=== PATIENT | male | born 1975 | race Caucasian/White ===

== ENCOUNTER 2018-05-17 18:46 | Emergency (ER) | payer SELFPAY ==
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
[2018-05-17] MEDS ORDERED: NA CHLORIDE 0.9% 1,000 ML ONE (19:33)
[2018-05-17] MEDS ORDERED: CEFAZOLIN 1GM (PREMIX IV) 1 GM/50 ML BAG ONE (19:33)
[2018-05-17] MEDS ORDERED: FENTANYL CITR 100 MCG/2 ML ONE (19:33)
[2018-05-17] MEDS ORDERED: TETANUS & DIPHTHERIA TOX,ADULT 0.5 ML VIAL ONE (19:33)
[2018-05-17 19:47] LABS: Absolute Monocytes 1.5 K/uL (0.1-1.3); Absolute Neutrophil 12.6 K/uL (1.8-8.0); Basophils % 0.8 % (0-1.3); Eosinophils % 1.2 % (0-4.4); Hematocrit 43.9 % (39.6-49.0); Lymphocytes % 21.9 % (15.3-44.8); MCH 31.6 pg (27.0-35.0); MCV 91.2 fL (80-100); MPV 8.9 fL (7.6-11.3); RBC Red Blood Cell Count 4.82 M/uL (4.33-5.43)
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
[2018-05-17 20:06] LABS: Platelet Estimate ADEQ; Urine White Blood Cell Casts OK
[2018-05-17 20:07] LABS: Platelets, Giant NOTED
[2018-05-17 20:08] LABS: Blood Morphology Comment NOT SEEN (NOT SEEN)
[2018-05-17 20:15] LABS: Potassium 3.7 mmol/L (3.5-5.1)
--- NOTE | 2018-05-17 20:58 | EDPHYS ---
Physician Documentation [facility] Name: Kj Varghese Age: 43 yrs Sex: Male : 1975 Arrival Date: 05/17/2018 Time: 18:50 Bed 7 Private MD: None, None ED Physician Deejay Freeman HPI: 05/17 20:08 This 43 yrs old Male presents to ER via Ambulatory with complaints of Fall snw Injury. 20:08 Details of fall: The patient fell from a height, off a roof, but with the patient's snw fall somewhat interrupted. Associated injuries: The patient sustained injury to the chest, injury to the abdomen, right wrist/forearm, abrasion, contusion, painful injury, swelling. Severity of symptoms: At their worst the symptoms were moderate. The patient has not experienced similar symptoms in the past. It is unknown whether or not the patient has recently seen a physician. hanging [place] lights and slid off the roof, + interrupted by shingles/roof, abrasion noted. Historical: - Allergies: 19:07 No Known Allergies; fc - Home Meds: 19:07 Adderall XR 25 mg Oral cp24 1 cap once daily [Active]; fc 19:08 aspirin 81 mg Oral TbEC 1 tab once daily [Active]; fc - PMHx: 19:07 ADD/ADHD; fc 19:08 dvt to left leg; fc - PSHx: 19:07 Hernia repair; fc - Immunization history: Last tetanus immunization: - up to date. - Social history:: Smoking status: Patient uses tobacco products, smokes one pack cigarettes per day. Patient uses alcohol, occasionally. - Ebola Screening: : Patient negative for fever greater than or equal to 101.5 degrees Fahrenheit, and additional compatible Ebola Virus Disease symptoms Patient denies exposure to infectious person Patient denies travel to an Ebola-affected area in the 21 days before illness onset. ROS: 20:06 Constitutional: Negative for fever, chills, and weight loss, Eyes: Negative for injury, snw pain, redness, and discharge, ENT: Negative for injury, pain, and discharge, Neck: Negative for injury, pain, and swelling, Cardiovascular: Negative for chest pain, palpitations, and edema, Respiratory: Negative for shortness of breath, cough, wheezing, postitive for right mild pleuritic chest pain, Abdomen/GI: Negative for abdominal pain, nausea, vomiting, diarrhea, and constipation. 20:06 : Negative for injury, bleeding, discharge, and swelling. 20:06 Back: Positive for injury or acute deformity, pain with movement, of the right scapular area and right subscapular area. 20:06 MS/extremity: Positive for injury or acute deformity, contusion, decreased range of motion, pain, of the right wrist/forearm/elbow. Exam: 20:05 Head/Face: Normocephalic, atraumatic. Eyes: Pupils equal round and reactive to light, snw extra-ocular motions intact. Lids and lashes normal. Conjunctiva and sclera are non-icteric and not injected. Cornea within normal limits. Periorbital areas with no swelling, redness, or edema. ENT: Nares patent. No nasal discharge, no septal abnormalities noted. Tympanic membranes are normal and external auditory canals are clear. Oropharynx with no redness, swelling, or masses, exudates, or evidence of obstruction, uvula midline. Mucous membranes moist. Neck: Trachea midline, no thyromegaly or masses palpated, and no cervical lymphadenopathy. Supple, full range of motion without nuchal rigidity, or vertebral point tenderness. No Meningismus. Chest/axilla: Normal chest wall appearance and motion. Nontender with no deformity. No lesions are appreciated. Cardiovascular: Regular rate and rhythm with a normal S1 and S2. No gallops, murmurs, or rubs. Normal PMI, no JVD. No pulse deficits. Respiratory: Lungs have equal breath sounds bilaterally, clear to auscultation and percussion. No rales, rhonchi or wheezes noted. No increased work of breathing, no retractions or nasal flaring. Abdomen/GI: Soft, non-tender, with normal bowel sounds. No distension or tympany. No guarding or rebound. No evidence of tenderness throughout. Back: No spinal tenderness. No costovertebral tenderness. Full range of motion. Neuro: Awake and alert, GCS 15, oriented to person, place, time, and situation. Cranial nerves II-XII grossly intact. Motor strength 5/5 in all extremities. Sensory grossly intact. Cerebellar exam normal. Normal gait. Psych: Awake, alert, with orientation to person, place and time. Behavior, mood, and affect are within normal limits. 20:05 Constitutional: The patient appears alert, awake, uncomfortable, diaphoretic 20:05 Musculoskeletal/extremity: Extremities: grossly normal except: noted in the dorsal aspect of right wrist and palmar aspect of right wrist: contusion, swelling, tenderness. 20:05 Skin: Appearance: normal except for affected area, diaphoresis is noted, injury, abrasion(s), large abrasion noted, of the anterior aspect of left lateral abdomen, right elbow. Vital Signs: 19:02 BP 153 / 93; Pulse 84; Resp 18; Temp 98.6(O); Pulse Ox 100% on R/A; Weight 98.88 kg fc (R); Height 6 ft. 3 in. (190.50 cm) (R); Pain 8/10; 20:00 BP 145 / 96; Pulse 94; Resp 18; Pulse Ox 100% on R/A; tl2 21:11 BP 158 / 92; Pulse 97; Resp 18; Pulse Ox 100% on R/A; Pain 4/10; tl2 19:02 Body Mass Index 27.25 (98.88 kg, 190.50 cm) Ben Coma Score: 19:02 Eye Response: spontaneous(4). Verbal Response: oriented(5). Motor Response: obeys fc commands(6). Total: 15. 20:00 Eye Response: spontaneous(4). Verbal Response: oriented(5). Motor Response: obeys tl2 commands(6). Total: 15. 21:11 Eye Response: spontaneous(4). Verbal Response: oriented(5). Motor Response: obeys tl2 commands(6). Total: 15. Trauma Score (Adult): 19:02 Eye Response: spontaneous(1); Verbal Response: oriented(1); Motor Response: obeys fc commands(2); Systolic BP: > 89 mm Hg(4); Respiratory Rate: 10 to 29 per min(4); [place] Score: 15; Trauma Score: 12 20:00 Eye Response: spontaneous(1); Verbal Response: oriented(1); Motor Response: obeys tl2 commands(2); Systolic BP: > 89 mm Hg(4); Respiratory Rate: 10 to 29 per min(4); [place] Score: 15; Trauma Score: 12 21:11 Eye Response: spontaneous(1); Verbal Response: oriented(1); Motor Response: obeys tl2 commands(2); Systolic BP: > 89 mm Hg(4); Respiratory Rate: 10 to 29 per min(4); [place] Score: 15; Trauma Score: 12 MDM: 19:33 Patient medically screened. snw 20:59 Data reviewed: vital signs, nurses notes. Data interpreted: Pulse oximetry: on room air snw is 100 %. Interpretation: normal. Counseling: I had a detailed discussion with the patient and/or guardian regarding: the historical points, exam findings, and any diagnostic results supporting the discharge/admit diagnosis, the presence of at least one elevated blood pressure reading (>120/80) during this emergency department visit, lab results, radiology results, the need for outpatient follow up, to return to the emergency department if symptoms worsen or persist or if there are any questions or concerns that arise at home. Special discussion: I have referred the patient to see his PCP for further evaluation of high blood pressure. Based on the patient's history, exam and DX evaluation, there is no indication for emergent intervention or inpatient TX. It is understood by the patient/guardian that if the SXs persist or worsen they need to return immediately for re-evaluation. Based on the history and exam findings, there is no indication for further emergent testing or inpatient evaluation. I discussed with the patient/guardian the need to see the primary care provider for further evaluation of the symptoms. 05/17 19:18 Order name: Basic Metabolic Panel; Complete Time: 20:16 snw 05/17 19:18 Order name: CBC with Diff; Complete Time: 20:10 snw 05/17 19:18 Order name: CT Traumagram (Head C Spine CAP W Con); Complete Time: 20:03 snw 05/17 19:18 Order name: Type And Screen; Complete Time: 22:38 snw 05/17 19:50 Order name: CBC Smear Scan; Complete Time: 20:10 EDMS 05/17 20:54 Order name: ABO/RH no charge; Complete Time: 20:55 EDMS 05/17 19:18 Order name: Labs collected and sent; Complete Time: 19:28 snw 05/17 19:18 Order name: Forearm Right XRAY; Complete Time: 21:01 snw 05/17 19:18 Order name: Wrist Right 3 View XRAY; Complete Time: 22:38 snw 05/17 19:18 Order name: Wound Care; Complete Time: 20:17 snw 05/17 20:38 Order name: Wrist Splint: right; Complete Time: 20:58 snw Administered Medications: 19:35 Drug: fentaNYL (PF) 50 mcg Route: IVP; Site: left upper arm; tl2 20:00 Follow up: Response: No adverse reaction; Pain is decreased tl2 20:05 Drug: Ancef 1 grams Route: IVPB; Site: left antecubital; rr5 21:15 Follow up: IV Status: Completed infusion tl2 20:06 Drug: NS 0.9% 1000 ml Route: IV; Rate: 1 bolus; Site: left upper arm; tl2 21:14 Follow up: IV Status: Completed infusion; IV Intake: 1000ml tl2 20:07 Drug: Tetanus-Diphtheria Toxoid Adult 0.5 ml {Overhead Worker: [employer]. Exp: rr5 02/24/2020. Lot #: [id number]. } Route: IM; Site: left deltoid; 21:15 Follow up: Response: No adverse reaction tl2 21:01 Drug: fentaNYL (PF) 50 mcg Route: IVP; Site: left upper arm; tl2 21:16 Follow up: Response: No adverse reaction; Medication administered at discharge. tl2 Disposition: 05/17/18 20:57 Discharged to Home. Impression: Fall from, out of or through roof, Abrasion of right front wall of thorax, Pain in right wrist, Contusion of right elbow. - Condition is Stable. - Discharge Instructions: Joint Pain, Hypertension, Musculoskeletal Pain, Wrist Pain, Wrist Splint, VIS, Tetanus, Diphtheria (Td) - CDC, Cryotherapy, [id number], Heat Therapy. - Prescriptions for Keflex 500 mg Oral Capsule - take 1 capsule by ORAL route every 8 hours for 10 days; 30 capsule. Diclofenac Sodium 75 mg Oral Tablet Sustained Release - take 1 tablet by ORAL route 2 times per day; 30 tablet. - Medication Reconciliation Form, Thank You Letter, Antibiotic Education, Prescription Opioid Use form. - Follow up: Private Physician; When: 2 - 3 days; Reason: Recheck today's complaints, Continuance of care, Re-evaluation by your physician. Follow up: Emergency Department; When: As needed; Reason: Worsening of condition. Signatures: Dispatcher [employer] EDMS Donna Marquez, PALLIATIVE CARE SPECIALIST-C PALLIATIVE CARE SPECIALIST-Csnw Janice Mckinnon, RN RN Mel Alfonso RN RN [facility] Rubin Coates RN RN rr5 Corrections: (The following items were deleted from the chart) 21:16 20:57 05/17/2018 20:57 Discharged to Home. Impression: Fall from, out of or through tl2 roof; Abrasion of right front wall of thorax; Pain in right wrist; Contusion of right elbow. Condition is Stable. Forms are Medication Reconciliation Form, Thank You Letter, Antibiotic Education, Prescription Opioid Use. Follow up: Private Physician; When: 2 - 3 days; Reason: Recheck today's complaints, Continuance of care, Re-evaluation by your physician. Follow up: Emergency Department; When: As needed; Reason: Worsening of condition. snw
--- NOTE | 2018-05-17 20:58 | ER ---
Nurse's Notes [facility] Name: Kj Varghese Age: 43 yrs Sex: Male : 1975 Arrival Date: 05/17/2018 Time: 18:50 Bed 7 Private MD: None, None Diagnosis: Fall from, out of or through roof;Abrasion of right front wall of thorax;Pain in right wrist;Contusion of right elbow Presentation: 05/17 19:02 Presenting complaint: Patient states: that he was on the roof of the house putting up [place] lights and fell. Landed on right side. Denies hitting head or any LOC. Has abrasions to right arm, right hip and right abd. Increased pain to right arm and hip only. Care prior to arrival: None. Mechanism of Injury: Fall from 1st story. Trauma event details: Injury occurred in the [facility], Injury occurred: at home. Injury occurred: May 17, 2018 Injury occurred at: 13:00. 19:02 Acuity: CHLOE 2 19:02 Method Of Arrival: Ambulatory 19:40 Transition of care: patient was not received from another setting of care. Onset of tl2 symptoms was May 17, 2018 at 18:30. Risk Assessment: Do you want to hurt yourself or someone else? Patient reports no desire to harm self or others. Initial Sepsis Screen: Does the patient meet any 2 criteria? No. Patient's initial sepsis screen is negative. Does the patient have a suspected source of infection? No. Patient's initial sepsis screen is negative. Trauma Activation: Alert Physician: ED Physician; Name: Jamil/Lydia; Notified At: 19:12; Arrived At: 19:12 Physician: General Surgeon; Name: ; Notified At: 19:12; Arrived At: Physician: Radiology; Name: Belkis Vargas Araceli; Notified At: 19:12; Arrived At: 19:12 Physician: Respiratory; Name: ; Notified At: 19:12; Arrived At: Physician: Lab; Name: ; Notified At: 19:12; Arrived At: Historical: - Allergies: 19:07 No Known Allergies; fc - Home Meds: 19:07 Adderall XR 25 mg Oral cp24 1 cap once daily [Active]; fc 19:08 aspirin 81 mg Oral TbEC 1 tab once daily [Active]; fc - PMHx: 19:07 ADD/ADHD; 19:08 dvt to left leg; fc - PSHx: 19:07 Hernia repair; fc - Immunization history: Last tetanus immunization: - up to date. - Social history:: Smoking status: Patient uses tobacco products, smokes one pack cigarettes per day. Patient uses alcohol, occasionally. - Ebola Screening: : Patient negative for fever greater than or equal to 101.5 degrees Fahrenheit, and additional compatible Ebola Virus Disease symptoms Patient denies exposure to infectious person Patient denies travel to an Ebola-affected area in the 21 days before illness onset. Screenin:02 Abuse screen: Denies threats or abuse. Tuberculosis screening: No symptoms or risk fc factors identified. 19:08 Nutritional screening: No deficits noted. fc 19:36 Fall Risk IV access (20 points). tl2 Primary Survey: 19:38 A: Airway: patent. Breathing/Chest: Respiratory pattern: regular, Respiratory effort: tl2 spontaneous, unlabored, Breath sounds: clear, Chest inspection: symmetrical rise and fall of the chest. Circulation: Pulses: palpable . Skin color: pink, Skin temperature: warm, dry. Disability Alert. 20:19 Reassessment Airway Airway Patent Breathing/Chest Respiratory pattern Regular tl2 Respiratory effort Spontaneous Unlabored Breath sounds Clear Chest inspection Symmetrical Circulation Pulses Palpable Disability Alert. Secondary Survey: 19:38 HEENT: No deficits noted. Gastrointestinal: No deficits noted. : No deficits noted. tl2 Musculoskeletal: Circulation, motion, and sensation intact. Range of motion: intact in all extremities, Swelling present in right wrist. Injury Description: Abrasion sustained to right flank, right arm. Assessment: 19:36 General: Appears in no apparent distress. uncomfortable, Behavior is calm, cooperative, tl2 appropriate for age. Pain: Complains of pain in back. Neuro: Level of Consciousness is awake, alert, obeys commands, Oriented to person, place, time, situation. Cardiovascular: Denies chest pain. Respiratory: Airway is patent Respiratory effort is even, unlabored, Respiratory pattern is regular, symmetrical. GI: No signs and/or symptoms were reported involving the gastrointestinal system. Derm: Skin is pink, warm \T\ dry. Injury Description: Abrasion sustained to right flank, right elbow is scabbed, was sustained 1-2 hours ago. 21:11 Reassessment: Patient appears in no apparent distress at this time. Patient and/or tl2 family updated on plan of care and expected duration. Pain level reassessed. Patient is alert, oriented x 3, equal unlabored respirations, skin warm/dry/pink. Pt verbalized understanding of discharge instructions, need for follow up and prescription usage and wound care Patient states feeling better. Vital Signs: 19:02 BP 153 / 93; Pulse 84; Resp 18; Temp 98.6(O); Pulse Ox 100% on R/A; Weight 98.88 kg fc (R); Height 6 ft. 3 in. (190.50 cm) (R); Pain 8/10; 20:00 BP 145 / 96; Pulse 94; Resp 18; Pulse Ox 100% on R/A; tl2 21:11 BP 158 / 92; Pulse 97; Resp 18; Pulse Ox 100% on R/A; Pain 4/10; tl2 19:02 Body Mass Index 27.25 (98.88 kg, 190.50 cm) fc [place] Coma Score: 19:02 Eye Response: spontaneous(4). Verbal Response: oriented(5). Motor Response: obeys fc commands(6). Total: 15. 20:00 Eye Response: spontaneous(4). Verbal Response: oriented(5). Motor Response: obeys tl2 commands(6). Total: 15. 21:11 Eye Response: spontaneous(4). Verbal Response: oriented(5). Motor Response: obeys tl2 commands(6). Total: 15. Trauma Score (Adult): 19:02 Eye Response: spontaneous(1); Verbal Response: oriented(1); Motor Response: obeys fc commands(2); Systolic BP: > 89 mm Hg(4); Respiratory Rate: 10 to 29 per min(4); [place] Score: 15; Trauma Score: 12 20:00 Eye Response: spontaneous(1); Verbal Response: oriented(1); Motor Response: obeys tl2 commands(2); Systolic BP: > 89 mm Hg(4); Respiratory Rate: 10 to 29 per min(4); [place] Score: 15; Trauma Score: 12 21:11 Eye Response: spontaneous(1); Verbal Response: oriented(1); Motor Response: obeys tl2 commands(2); Systolic BP: > 89 mm Hg(4); Respiratory Rate: 10 to 29 per min(4); Ben Score: 15; Trauma Score: 12 ED Course: 18:50 Patient arrived in ED. mr 18:51 None, None is Private Physician. mr 19:02 Patient has correct armband on for positive identification. Placed in gown. Bed in low fc position. Call light in reach. 19:02 Patient maintains SpO2 saturation greater than 95% on room air. fc 19:05 Triage completed. fc 19:08 Arm band placed on Patient placed in an exam room, on a stretcher. fc 19:13 Donna Marquez FNP-C is [facility]. snw 19:13 Deejay Freeman MD is Attending Physician. snw 19:19 Mel Alfonso RN is Primary Nurse. tl2 19:23 Inserted saline lock: 20 gauge in left upper arm, using aseptic technique. Blood mw2 collected. 19:35 CT completed. Patient tolerated procedure well. Patient moved to CT via stretcher. Patient moved to radiology via stretcher. 19:40 Thermoregulation: warm blanket given to patient. tl2 19:41 CT Traumagram (Head C Spine CAP W Con) In Process Unspecified. EDMS 19:52 Forearm Right XRAY In Process Unspecified. EDMS 19:52 Wrist Right 3 View XRAY In Process Unspecified. EDMS 20:21 Wound care: to abrasion, located on right flank, right elbow, right forearm was cleaned tl2 with Hibiclens, dressed with Neosporin. 21:13 No provider procedures requiring assistance completed. IV discontinued, intact, tl2 bleeding controlled, No redness/swelling at site. Pressure dressing applied. Administered Medications: 19:35 Drug: fentaNYL (PF) 50 mcg Route: IVP; Site: left upper arm; tl2 20:00 Follow up: Response: No adverse reaction; Pain is decreased tl2 20:05 Drug: Ancef 1 grams Route: IVPB; Site: left antecubital; rr5 21:15 Follow up: IV Status: Completed infusion tl2 20:06 Drug: NS 0.9% 1000 ml Route: IV; Rate: 1 bolus; Site: left upper arm; tl2 21:14 Follow up: IV Status: Completed infusion; IV Intake: 1000ml tl2 20:07 Drug: Tetanus-Diphtheria Toxoid Adult 0.5 ml {Jig And Fixture Maker: [employer]. Exp: rr5 02/24/2020. Lot #: [id number]. } Route: IM; Site: left deltoid; 21:15 Follow up: Response: No adverse reaction tl2 21:01 Drug: fentaNYL (PF) 50 mcg Route: IVP; Site: left upper arm; tl2 21:16 Follow up: Response: No adverse reaction; Medication administered at discharge. tl2 Intake: 21:13 IV: 1000ml (IV Fluid); Total: 1000ml. tl2 21:14 IV: 1000ml; Total: 2000ml. tl2 Outcome: 20:57 Discharge ordered by . snestefany 21:12 Discharged to home ambulatory, with family. tl2 21:12 Condition: stable 21:12 Patient's length of stay was not longer than 2 hours. 21:13 Discharge instructions given to patient, family, Instructed on discharge instructions, tl2 follow up and referral plans. medication usage, wound care, Demonstrated understanding of instructions, follow-up care, medications, wound care, Prescriptions given X 2. 21:16 Patient left the ED. tl2 Signatures: Dispatcher [employer] EDMS Donna Marquez, [employer]BER[employer] INDEPENDENT BEAUTY CONSULTANT-Yuniel PerryYanelis mr ValderramaShen Felicia RN Sepideh Perez RN RN bb Knox, Taylor, RN RN tl2 Albert Cope [facility] Rubin Coates RN RN rr5
--- NOTE | 2018-05-17 20:59 | RAD REPORT ---
EXAM DESCRIPTION: RAD - Forearm Right - 05/17/2018 7:54 pm CLINICAL HISTORY: Fall, arm pain COMPARISON: None. FINDINGS: No fracture is identified. There is no dislocation or periosteal reaction noted. No foreign body in the soft tissues. Contusion or edema changes are present posterior to the midshaft ulna. IMPRESSION: Soft tissue edema or contusion changes are present. No right forearm fracture.
--- NOTE | 2018-05-17 20:59 | RAD REPORT ---
EXAM DESCRIPTION: RAD - Wrist Right 3 View - 05/17/2018 7:54 pm CLINICAL HISTORY: Fall from roof, right wrist pain COMPARISON: None. FINDINGS: No fracture is identified. There is no dislocation or periosteal reaction noted. No foreig n body or other soft tissue abnormality. IMPRESSION: Negative right wrist examination.
== END 2018-05-17 21:16 | disposition home or self-care (01) ==
LOC: ER 18:46
DX: S20.311A Abrasion of right front wall of thorax, initial encounter (principal); S50.01XA Contusion of right elbow, initial encounter; W13.2XXA Fall from, out of or through roof, initial encounter; Y93.89 Activity, other specified; Y92.008 Other place in unspecified non-institutional (private) residence as the place of occurrence of the external cause; Z23 Encounter for immunization; Z79.82 Long term (current) use of aspirin; F90.9 Attention-deficit hyperactivity disorder, unspecified type; F17.210 Nicotine dependence, cigarettes, uncomplicated
CPT/HCPCS: 36415; 70450; 71260; 72125; 74177; 80048; 85025; 86850; 86900; 86901; 90714; 96365; 96375; 99285; J0690; J3010; J7030; Q9967

== ENCOUNTER 2020-12-17 18:22 | Emergency (ER) | payer SELFPAY ==
[2020-12-17 21:49] LABS: Urine Blood Negative (Negative); Urine Glucose Negative (Negative); Urine Protein Negative (Negative); Urine Specific Gravity 1.015 (1.005-1.030); Urine pH 6.5 (5.0-7.0)
[2020-12-17] MEDS ORDERED: SMZ./TMP. 800/160 MG TABLET ONE (21:53)
[2020-12-17] MEDS ORDERED: DOXYCYCLINE 100 MG CAP PO ONE (21:54)
[2020-12-17] MEDS ORDERED: IBUPROFEN 400 MG TAB ONE (21:54)
--- NOTE | 2020-12-17 22:05 | RAD REPORT ---
EXAM DESCRIPTION: RAD - Tib Fib Right - 12/17/2020 9:56 pm CLINICAL HISTORY: PAIN COMPARISON: No comparisons FINDINGS: No tibia or fibular fracture is seen. Mild medial compartment degenerative changes involvi ng the knee. Partially imaged deformity/degenerative changes involving the medial aspect of the talus and calcaneus. IMPRESSION: No acute osseus abnormality involving the tibia or fibula.
--- NOTE | 2020-12-17 22:18 | RAD REPORT ---
EXAM DESCRIPTION: US - Extrem Venous W Compress Robert - 12/17/2020 10:11 pm CLINICAL HISTORY: Pain COMPARISON: None. TECHNIQUE: Real-time sonographic evaluation of the bilateral lower extremity deep venous systems was performed. FINDINGS: Normal compressibility, flow augmentation, phasic flow and spontaneous flow is identified in both the left and right lower extremity deep venous systems. No intraluminal filling defects seen. IMPRESSION: No DVT in either lower extremity.
--- NOTE | 2020-12-17 22:19 | EDPHYS ---
Physician Documentation [facility] Name: Kj Varghese Age: 45 yrs Sex: Male : 1975 Arrival Date: 12/17/2020 Time: 18:25 Bed 8 Private MD: ED Physician Sukumar Negron HPI: 12/17 21:23 This 45 yrs old Male presents to ER via Ambulatory with complaints of Leg noy Swelling - right. 21:23 The patient presents with decreased range of motion, pain. The complaints affect the noy right tang and anterior aspect of right ankle. Context: The problem was sustained at home, resulted from the patient falling, a mis-step, the patient can partially bear weight. Onset: The symptoms/episode began/occurred 3 day(s) ago. Modifying factors: The symptoms are alleviated by elevating leg, remaining still, the symptoms are aggravated by nothing. Associated signs and symptoms: The patient has no apparent associated signs or symptoms. Treatment prior to arrival includes: no previous treatment. Severity of symptoms: At their worst the symptoms were mild, in the emergency department the symptoms are unchanged. Historical: - Allergies: 18:32 No Known Allergies; hb - Home Meds: 18:32 None [Active]; hb - PMHx: 18:32 ADD/ADHD; dvt to left leg; hb - PSHx: 18:32 hernia repair; hb - Immunization history:: Adult Immunizations up to date. - Social history:: Smoking status: Patient reports the use of cigarette tobacco products, smokes one pack cigarettes per day. - Family history:: not pertinent. ROS: 21:23 Constitutional: Negative for fever, chills, and weight loss, Eyes: Negative for injury, noy pain, redness, and discharge, ENT: Negative for injury, pain, and discharge, Neck: Negative for injury, pain, and swelling, Cardiovascular: Negative for chest pain, palpitations, and edema, Respiratory: Negative for shortness of breath, cough, wheezing, and pleuritic chest pain, Abdomen/GI: Negative for abdominal pain, nausea, vomiting, diarrhea, and constipation, Back: Negative for injury and pain, : Negative for injury, bleeding, discharge, and swelling, Skin: Negative for injury, rash, and discoloration, Neuro: Negative for headache, weakness, numbness, tingling, and seizure, Psych: Negative for depression, anxiety, suicide ideation, homicidal ideation, and hallucinations, Allergy/Immunology: Negative for hives, rash, and allergies, Endocrine: Negative for neck swelling, polydipsia, polyuria, polyphagia, and marked weight changes, Hematologic/Lymphatic: Negative for swollen nodes, abnormal bleeding, and unusual bruising. 21:23 MS/extremity: Positive for decreased range of motion, erythema, pain, of the lateral aspect of right calf, right ankle, right tang and anterior aspect of right ankle. Exam: 21:23 Constitutional: This is a well developed, well nourished patient who is awake, alert, noy and in no acute distress. Head/Face: Normocephalic, atraumatic. Eyes: Pupils equal round and reactive to light, extra-ocular motions intact. Lids and lashes normal. Conjunctiva and sclera are non-icteric and not injected. Cornea within normal limits. Periorbital areas with no swelling, redness, or edema. ENT: Nares patent. No nasal discharge, no septal abnormalities noted. Tympanic membranes are normal and external auditory canals are clear. Oropharynx with no redness, swelling, or masses, exudates, or evidence of obstruction, uvula midline. Mucous membranes moist. Neck: Trachea midline, no thyromegaly or masses palpated, and no cervical lymphadenopathy. Supple, full range of motion without nuchal rigidity, or vertebral point tenderness. No Meningismus. Chest/axilla: Normal chest wall appearance and motion. Nontender with no deformity. No lesions are appreciated. Cardiovascular: Regular rate and rhythm with a normal S1 and S2. No gallops, murmurs, or rubs. Normal PMI, no JVD. No pulse deficits. Respiratory: Lungs have equal breath sounds bilaterally, clear to auscultation and percussion. No rales, rhonchi or wheezes noted. No increased work of breathing, no retractions or nasal flaring. Abdomen/GI: Soft, non-tender, with normal bowel sounds. No distension or tympany. No guarding or rebound. No evidence of tenderness throughout. Back: No spinal tenderness. No costovertebral tenderness. Full range of motion. Male : Normal genitalia with no discharge or lesions. Neuro: Awake and alert, GCS 15, oriented to person, place, time, and situation. Cranial nerves II-XII grossly intact. Motor strength 5/5 in all extremities. Sensory grossly intact. Cerebellar exam normal. Normal gait. Psych: Awake, alert, with orientation to person, place and time. Behavior, mood, and affect are within normal limits. 21:23 Skin: cellulitis, that is mild, induration, that is mild is noted, injury, contusion(s), that are deep, of the lateral aspect of right calf, right ankle, right tang and anterior aspect of right ankle. Vital Signs: 18:29 BP 147 / 77; Pulse 76; Resp 16; Temp 97.7; Pulse Ox 100% on R/A; Weight 88.45 kg; hb Height 6 ft. 3 in. (190.50 cm); Pain 3/10; 22:48 BP 142 / 76; Pulse 74; Resp 16; Pulse Ox 99% ; jm8 18:29 Body Mass Index 24.37 (88.45 kg, 190.50 cm) hb MDM: 21:09 Patient medically screened. [facility] 21:26 Differential diagnosis: closed fracture, contusion, tendonitis. Data reviewed: vital noy signs, nurses notes, lab test result(s), radiologic studies, doppler, plain films. Data interpreted: awake overnight monitor: rate is 76 beats/min, rhythm is regular, Pulse oximetry: on room air is 100 %. Test interpretation: by ED physician or midlevel provider: plain radiologic studies. Counseling: I had a detailed discussion with the patient and/or guardian regarding: the historical points, exam findings, and any diagnostic results supporting the discharge/admit diagnosis, radiology results, the need for outpatient follow up, for definitive care, a general surgeon, a orthopedic surgeon. 12/17 21:48 Order name: Urine Dipstick-Ancillary; Complete Time: 22:18 EDCA 12/17 21:23 Order name: Tib Fib Right XRAY; Complete Time: 22:18 noy 12/17 21:31 Order name: US Extremity Venous W Compression Robert noy 12/17 21:23 Order name: Ice pack; Complete Time: 21:41 [facility] 12/17 21:49 Order name: Urine Dipstick-Ancillary (obtain specimen); Complete Time: 21:49 [facility] Administered Medications: 21:34 Drug: Motrin (ibuprofen) 800 mg Route: PO; ak2 21:43 Follow up: Response: No adverse reaction [facility] 21:35 Drug: Bactrim (trimethoprim-sulfamethoxazole) (160 mg-800 mg (DS) 1 tablet Route: PO; ak2 21:42 Follow up: Response: No adverse reaction [email or web address] 21:35 Drug: Doxycycline 200 mg Route: PO; ak2 21:42 Follow up: Response: No adverse reaction [email or web address] Disposition Summary: 12/17/20 22:18 Discharge Ordered Location: Home noy Problem: new noy Symptoms: have improved noy Condition: Stable noy Diagnosis - Contusion of right lower leg noy - Cellulitis of right lower limb noy Followup: noy - With: Private Physician - When: 2 - 3 days - Reason: Recheck today's complaints, Continuance of care, Re-evaluation by your physician Followup: noy - With: - When: 2 - 3 days - Reason: Recheck today's complaints, Continuance of care, Re-evaluation by your physician Followup: noy - With: - When: 2 - 3 days - Reason: Recheck today's complaints, Continuance of care, Re-evaluation by your physician Discharge Instructions: - Discharge Summary Sheet noy - Cellulitis, Adult noy - Cellulitis, Adult, [id number] [facility] - Lymphangitis, Adult [facility] Forms: - Medication Reconciliation Form [facility] - Thank You Letter [facility] - Antibiotic Education [facility] - Prescription Opioid Use [facility] Prescriptions: - Ibuprofen 600 mg Oral Tablet - take 1 tablet by ORAL route every 6 hours As needed take with food; 20 tablet; [facility] Refills: 0, Product Selection Permitted - Doxycycline Hyclate 100 mg Oral Tablet - take 1 tablet by ORAL route every 12 hours; 20 tablet; Refills: 0, Product [facility] Selection Permitted - Bactrim DS 800-160 mg Oral Tablet - take 1 tablet by ORAL route every 12 hours for 10 days; 20 tablet; Refills: 0, [facility] Product Selection Permitted Signatures: Dispatcher [employer] EDSukumar Mason MD MD cha Baxter, Heather, RN RN Luis Hunter RN RN jm8 Jung Joshi ak2 Corrections: (The following items were deleted from the chart) 21:33 21:24 Extremity Venous Uni Ltd+[email or web address] ordered. EDMS EDMS
--- NOTE | 2020-12-17 22:19 | ER ---
Nurse's Notes [facility] Name: Kj Varghese Age: 45 yrs Sex: Male : 1975 Arrival Date: 12/17/2020 Time: 18:25 Bed 8 Private MD: Diagnosis: Contusion of right lower leg;Cellulitis of right lower limb Presentation: 12/17 18:29 Chief complaint: Right lower leg and ankle swelling x 5 days. Reports repeatedly using hb that part of his leg to climb up during work. Coronavirus screen: At this time, the client does not indicate any symptoms associated with coronavirus-19. Ebola Screen: No symptoms or risks identified at this time. Initial Sepsis Screen: Does the patient meet any 2 criteria? No. Patient's initial sepsis screen is negative. Does the patient have a suspected source of infection? No. Patient's initial sepsis screen is negative. Risk Assessment: Do you want to hurt yourself or someone else? Patient reports no desire to harm self or others. Onset of symptoms was December 12, 2020. 18:29 Method Of Arrival: Ambulatory hb 18:29 Acuity: CHLOE 3 hb Triage Assessment: 21:54 General: Behavior is calm, cooperative. ak2 Historical: - Allergies: 18:32 No Known Allergies; hb - Home Meds: 18:32 None [Active]; hb - PMHx: 18:32 ADD/ADHD; dvt to left leg; hb - PSHx: 18:32 hernia repair; hb - Immunization history:: Adult Immunizations up to date. - Social history:: Smoking status: Patient reports the use of cigarette tobacco products, smokes one pack cigarettes per day. - Family history:: not pertinent. Screenin:54 Abuse screen: Denies threats or abuse. Denies injuries from another. Nutritional ak2 screening: No deficits noted. Tuberculosis screening: No symptoms or risk factors identified. Fall Risk None identified. Assessment: 21:54 General: Appears in no apparent distress. Pain: Complains of pain in right leg. Neuro: ak2 No deficits noted. Cardiovascular: No deficits noted. Respiratory: No deficits noted. Vital Signs: 18:29 BP 147 / 77; Pulse 76; Resp 16; Temp 97.7; Pulse Ox 100% on R/A; Weight 88.45 kg; hb Height 6 ft. 3 in. (190.50 cm); Pain 3/10; 22:48 BP 142 / 76; Pulse 74; Resp 16; Pulse Ox 99% ; jm8 18:29 Body Mass Index 24.37 (88.45 kg, 190.50 cm) ED Course: 18:25 Patient arrived in ED. am2 18:32 Triage completed. hb 18:32 Arm band placed on. 21:09 Sukumar Negron MD is Attending Physician. [facility] 21:29 Jung Joshi is Primary Nurse. ak2 21:55 Patient has correct armband on for positive identification. ak2 21:56 Tib Fib Right XRAY In Process Unspecified. EDMS 22:11 US Extremity Venous W Compression Robert In Process Unspecified. EDMS 22:18 Gabriel Coe MD is Referral Physician. [facility] 22:18 Cornelio Miller MD is Referral Physician. [facility] 22:48 No provider procedures requiring assistance completed. Patient did not have IV access jm8 during this emergency room visit. Administered Medications: 21:34 Drug: Motrin (ibuprofen) 800 mg Route: PO; ak2 21:43 Follow up: Response: No adverse reaction jm8 21:35 Drug: Bactrim (trimethoprim-sulfamethoxazole) (160 mg-800 mg (DS) 1 tablet Route: PO; ak2 21:42 Follow up: Response: No adverse reaction jm8 21:35 Drug: Doxycycline 200 mg Route: PO; ak2 21:42 Follow up: Response: No adverse reaction jm8 Outcome: 22:18 Discharge ordered by . [facility] 22:48 Discharged to home ambulatory. 8 22:48 Condition: good 22:48 Discharge instructions given to patient, Instructed on discharge instructions, follow up and referral plans. medication usage, Demonstrated understanding of instructions, follow-up care, medications, Prescriptions given X 3. 22:49 Patient left the ED. jm8 Signatures: Dispatcher [employer] EDMI Sukumar Negron MD MD cha Baxter, Heather, RN RN Farida Landis 2 Luis Hunter, RN RN Jung Good vt2
[2020-12-17 22:54] VITALS: TEMP 97.7
[2020-12-17 22:55] VITALS: BP 142/76; O2SAT 99
== END 2020-12-17 22:49 | disposition home or self-care (01) ==
LOC: ER 18:22
DX: L03.115 Cellulitis of right lower limb (principal); F17.210 Nicotine dependence, cigarettes, uncomplicated
CPT/HCPCS: 81003; 93970; 99283

== ENCOUNTER 2023-10-19 12:54 | Emergency (ER) | payer SELFPAY ==
[2023-10-19] MEDS ORDERED: CEPHALEXIN 250 MG CAP ONE (13:22)
[2023-10-19] MEDS ORDERED: SMZ./TMP. 800/160 MG TABLET ONE (13:23)
--- NOTE | 2023-10-19 15:31 | RAD REPORT ---
EXAM DESCRIPTION: US - Extremity Venous Uni Ltd - 10/19/2023 3:07 pm CLINICAL HISTORY: LEFT Leg swelling and edema. COMPARISON: <Comparisons> FINDINGS: Left lower extremity venous system was interrogated with Doppler technique. Normal flow, c ompressibility and augmentation was noted. There is no DVT present. IMPRESSION: No evidence of left lower extremity deep venous thrombosis.
--- NOTE | 2023-10-19 15:36 | ER ---
Nurse's Notes [facility] Name: Kj Varghese Age: 48 yrs Sex: Male : 1975 Arrival Date: 10/19/2023 Time: 12:54 Bed 14 Private MD: Diagnosis: DVT left lower extremity;Local infection of the skin and subcutaneous tissue, unspecified Presentation: 10/18 13:01 Chief complaint: Patient states: has a sore on left ankle area X 1 week from his shoe iw rubbing against him. Coronavirus screen: At this time, the client does not indicate any symptoms associated with coronavirus-19. Ebola Screen: Patient negative for fever greater than or equal to 101.5 degrees Fahrenheit, and additional compatible Ebola Virus Disease symptoms Patient denies exposure to infectious person. Patient denies travel to an Ebola-affected area in the 21 days before illness onset. No symptoms or risks identified at this time. Risk Assessment: Do you want to hurt yourself or someone else? Patient reports no desire to harm self or others. Onset of symptoms was October 12, 2023. 13:01 Method Of Arrival: Ambulatory iw 13:02 Initial Sepsis Screen: Does the patient meet any 2 criteria? No. Patient's initial iw sepsis screen is negative. Does the patient have a suspected source of infection? No. Patient's initial sepsis screen is negative. 13:02 Acuity: CHLOE 3 iw Historical: - Allergies: 13:02 No Known Allergies; iw - PMHx: 13:02 ADD/ADHD; dvt to left leg; iw - PSHx: 13:02 hernia repair; iw - Immunization history:: Adult Immunizations not up to date. - Infectious Disease History:: Denies. - Social history:: Smoking status: Patient reports the use of cigarette tobacco products. Screenin:[address] [facility] ED Fall Risk Assessment (Adult) History of falling in the last 3 months, cp4 including since admission No falls in past 3 months (0 pts) Confusion or Disorientation No (0 pts) Intoxicated or Sedated No (0 pts) Impaired Gait No (0 pts) Mobility Assist Device Used No (0 pt) Altered Elimination No (0 pt) Score/Fall Risk Level 0 - 2 = Low Risk Oriented to surroundings, Maintained a safe environment, Assessed \T\ reinforced patient's understanding of fall precautions, Hourly rounding (assess needs \T\ fall precautionary measures) done. Abuse screen: Denies threats or abuse. Nutritional screening: No deficits noted. Tuberculosis screening: No symptoms or risk factors identified. Assessment: 13:33 General: Appears in no apparent distress. Behavior is calm, cooperative, appropriate cp4 for age. 13:33 Pain: Complains of pain in left ankle. cp4 Vital Signs: 13:01 BP 145 / 86; Pulse 89; Resp 16; Temp 98.2(O); Pulse Ox 99% on R/A; Weight 99.79 kg; iw Height 6 ft. 3 in. ; Pain 6/10; 14:00 BP 147 / 84; Pulse 84; Resp 16; Pulse Ox 99% ; cp4 15:55 BP 134 / 91; Pulse 86; Resp 18; Pulse Ox 100% ; cp4 13:01 Body Mass Index 27.50 (99.79 kg, 190.5 cm) iw 13:01 Pain Scale: Adult iw ED Course: 12:58 Patient arrived in ED. im 12:59 Rehana Miranda FNP-C is PHCP. kb 12:59 Audi James MD is Attending Physician. kb 13:03 Triage completed. iw 13:03 Arm band placed on. iw 13:20 Carola Vazquez is Primary Nurse. cp4 13:33 Bed in low position. Call light in reach. Side rails up X2. cp4 13:33 No provider procedures requiring assistance completed. cp4 13:33 Patient did not have IV access during this emergency room visit. cp4 15:09 Extremity Venous Uni Ltd In Process Unspecified. EDMS 16:01 Provided Education on: dvt. cp4 Administered Medications: 13:38 Drug: Trimethoprim-Sulfamethoxazole PO (160 mg-800 mg (DS) 1 tablet PO once Route: PO; cp4 15:30 Follow up: Response: No adverse reaction cp4 13:38 Drug: Cephalexin PO 500 mg PO once Route: PO; cp4 15:30 Follow up: Response: No adverse reaction cp4 Medication: 13:33 VIS not applicable for this client. cp4 Outcome: 15:35 Discharge ordered by . kb 15:51 Discharge ordered by . kb 16:00 Discharged to home ambulatory, cp4 16:00 Condition: stable 16:00 Discharge instructions given to patient, Instructed on discharge instructions, follow up and referral plans. medication usage, Demonstrated understanding of instructions, follow-up care, medications, Prescriptions given X 3, 16:01 Patient left the ED. cp4 Signatures: Dispatcher [employer] EDRehana Diego, Marge Whitfield, RN RN iw Kath Bañuelos Christina cp4 Corrections: (The following items were deleted from the chart) 13:03 13:01 Pulse 89bpm; Resp 16bpm; Pulse Ox 99% RA; 99.79 kg; Height 6 ft. 3 in.; BMI: iw 27.5; Pain 6/10, Adult; iw 13:04 13:01 BP 145 / 86; Pulse 89bpm; Resp 16bpm; Pulse Ox 99% RA; 99.79 kg; Height 6 ft. 3 iw in.; BMI: 27.5; Pain 6/10, Adult; iw
--- NOTE | 2023-10-19 15:36 | EDPHYS ---
Physician Documentation [facility] Name: Kj Varghese Age: 48 yrs Sex: Male : 1975 Arrival Date: 10/19/2023 Time: 12:54 Bed 14 Private MD: ED Physician Audi James HPI: 10/18 13:31 This 48 yrs old Male presents to ER via Ambulatory with complaints of Leg Pain. kb 13:31 Pt is a 48 year old male who presents for open wound to medial aspect of left heel that kb started a week ago. States it developed due to his shoe rubbing his foot while walking his dog. Denies fever. States he has some redness develop in his calf so that is what made him come in today. denies fever. States he has had a blood clot in his left leg in the past. Historical: - Allergies: 13:02 No Known Allergies; iw - PMHx: 13:02 ADD/ADHD; dvt to left leg; iw - PSHx: 13:02 hernia repair; iw - Immunization history:: Adult Immunizations not up to date. - Infectious Disease History:: Denies. - Social history:: Smoking status: Patient reports the use of cigarette tobacco products. ROS: 14:53 Constitutional: As per HPI kb Exam: 14:53 Constitutional: This is a well developed, well nourished patient who is awake, alert, kb and in no acute distress. Head/Face: Normocephalic, atraumatic. ENT: Moist Mucous membranes Cardiovascular: Regular rate Respiratory: Respirations even and unlabored. No increased work of breathing. Talking in full sentences MS/ Extremity: Pulses equal, no cyanosis. Neurovascular intact. Full, normal range of motion. Neuro: Awake and alert, GCS 15, oriented to person, place, time, and situation. Moves all extremities. Normal gait. 14:53 Skin: small open wound to medial aspect of left ankle; erythema to medial aspect of left lower leg just above ankle. Vital Signs: 13:01 BP 145 / 86; Pulse 89; Resp 16; Temp 98.2(O); Pulse Ox 99% on R/A; Weight 99.79 kg; iw Height 6 ft. 3 in. ; Pain 6/10; 14:00 BP 147 / 84; Pulse 84; Resp 16; Pulse Ox 99% ; cp4 15:55 BP 134 / 91; Pulse 86; Resp 18; Pulse Ox 100% ; cp4 13:01 Body Mass Index 27.50 (99.79 kg, 190.5 cm) iw 13:01 Pain Scale: Adult iw MDM: 12:59 Patient medically screened. kb 14:54 Differential diagnosis: abscess, wound infection, dvt, cellulitis. Data reviewed: vital kb signs, nurses notes. 15:34 Test considered but Not performed: Labs: cbc, cmp and blood cultures considered, but pt kb is nontoxic in appearacne and afebrile. . Counseling: I had a detailed discussion with the patient and/or guardian regarding the historical points, exam findings, and any diagnostic results supporting the discharge/admit diagnosis, radiology results, the need for outpatient follow up, a family practitioner, to return to the emergency department if symptoms worsen or persist or if there are any questions or concerns that arise at home. 15:49 ED course: Discussed US with Dr Arriola. Pt does have a DVT in left lower extremity. Pt kb denies any shortness of breath. Will start on xarelto and pt educated to return immediately for chest pain, shortness of breath and to follow up with PCP. Verbal understanding received. . 10/18 14:53 Order name: Extremity Venous Uni [facility] EDNY 10/18 15:31 Order name: ; Complete Time: 15:49 EDMS Administered Medications: 13:38 Drug: Trimethoprim-Sulfamethoxazole PO (160 mg-800 mg (DS) 1 tablet PO once Route: PO; cp4 15:30 Follow up: Response: No adverse reaction cp4 13:38 Drug: Cephalexin PO 500 mg PO once Route: PO; cp4 15:30 Follow up: Response: No adverse reaction cp4 Disposition: 16:26 Co-signature as Attending Physician, Audi James MD I reviewed the patient's care rn provided by the Advanced Practice Provider and agree with the diagnosis and treatment plan. Disposition Summary: 10/19/23 15:51 Discharge Ordered Notes: Location: Home(10/19/23 15:51) kb Condition: Stable(10/19/23 15:51) kb Diagnosis - DVT left lower extremity kb - Local infection of the skin and subcutaneous tissue, unspecified(10/19/23 15:51) kb Followup: kb - With: Emergency Department - When: As needed - Reason: Worsening of condition Followup: kb - With: Private Physician - When: 2 - 3 days - Reason: Recheck today's complaints, Continuance of care, Re-evaluation by your physician Discharge Instructions: - Discharge Summary Sheet kb - Deep Vein Thrombosis kb - Wound Infection, [id number] kb Forms: - Medication Reconciliation Form kb - Antibiotic Education kb - Prescription Opioid Use kb - Patient Portal Instructions kb - Leadership Thank You Letter kb Prescriptions: - Cephalexin 500 mg Oral Capsule - take 1 capsule ORAL route every 8 hours for 10 days; 30 capsule; Refills: 0, kb Product Selection Permitted - Bactrim DS 800-160 mg Oral Tablet - take 1 tablet ORAL route every 12 hours for 10 days; 20 tablet; Refills: 0, kb Product Selection Permitted - Xarelto 15 mg Oral tablet - take 1 tablet ORAL route 2 times per day for 21 days; 42 tablet; Refills: 0, kb Product Selection Permitted Signatures: Dispatcher [employer] Rehana Owen, AMBERLY BELLA-Marge Salazar, RN Audi Perez MD MD rn Potter, Christina cp4 Corrections: (The following items were deleted from the chart) 15:45 15:35 Home kb kb 15:45 15:35 Stable kb kb 15:45 15:35 Local infection of the skin and subcutaneous tissue, unspecified - open wound kb kb
== END 2023-10-19 16:01 | disposition home or self-care (01) ==
LOC: ER 12:54
DX: I82.402 Acute embolism and thrombosis of unspecified deep veins of left lower extremity (principal); L08.9 Local infection of the skin and subcutaneous tissue, unspecified
CPT/HCPCS: 93971; 99283